=== PATIENT | female | born 1960 | race Caucasian/White ===

== ENCOUNTER 2020-09-28 15:47 | Observation (INO) | payer BC ==
[2020-09-28] MEDS ORDERED: ASPIRIN 325 MG TAB PO STA (17:00)
[2020-09-28] MEDS ORDERED: SODIUM CHLORIDE 0.9% 500 ML 500 ML IV ONE ×2 (17:00→17:48)
--- NOTE | 2020-09-28 17:00 | ED ---
General Adult HPI - General Chief complaint: Syncope Stated complaint: Abn EKG, heart issues Time Seen by Provider: 09/28/20 16:45 Source: patient, RN notes reviewed, old records reviewed Mode of arrival: ambulatory Limitations: no limitations - History of Present Illness Initial comments: 60-year-old female presenting for evaluation of syncopal episode and abnormal EKG. Patient was seen by her primary care physician today and found to have nonsustained ventricular tachycardia. 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 She reports a minor injury to her left arm. No significant head trauma. Denies chest pain but states she's had some palpitations. She does drink coffee in the morning and green tea throughout the day. No previous history of arrhythmia. No previous history of CAD. Patient has history of hypertension but is otherwise healthy. No recent nausea vomiting. No abdominal pain. No chest pain no fever. No cough. - Related Data Home Medications Medication Instructions Recorded Confirmed Albuterol Nebulized [Ventolin 2.5 mg INHALATION RT-Q4H PRN 09/28/20 09/28/20 Nebulized] Albuterol Sulfate [Ventolin HFA] 1 - 2 puff INHALATION RT-Q6H PRN 09/28/20 09/28/20 Losartan Potassium 50 mg PO DAILY 09/28/20 09/28/20 Meloxicam [Mobic] 15 mg PO DAILY PRN 09/28/20 09/28/20 Rosuvastatin [Crestor] 10 mg PO DAILY 09/28/20 09/28/20 Allergies Allergy/AdvReac Type Severity Reaction Status Date / Time No Known Allergies Allergy Verified 09/28/20 17:11 Review of Systems ROS Statement: Those systems with pertinent positive or pertinent negative responses have been documented in the HPI. ROS Other: All systems not noted in ROS Statement are negative. Past Medical History Past Medical History: Hyperlipidemia, Hypertension History of Any Multi-Drug Resistant Organisms: None Reported Past Surgical History: Cholecystectomy, Hysterectomy Additional Past Surgical History / Comment(s): one kidney Past Psychological History: No Psychological Hx Reported Smoking Status: Current every day smoker Past Alcohol Use History: None Reported Past Drug Use History: None Reported General Exam Limitations: no limitations General appearance: alert, in no apparent distress Head exam: Present: atraumatic, normocephalic Eye exam: Present: normal appearance, PERRL ENT exam: Present: mucous membranes dry Neck exam: Present: normal inspection. Absent: tenderness, meningismus Respiratory exam: Present: normal lung sounds bilaterally. Absent: respiratory distress, wheezes Cardiovascular Exam: Present: regular rate, irregular rhythm GI/Abdominal exam: Present: soft. Absent: distended, tenderness, guarding, rebound Extremities exam: Present: normal inspection, normal capillary refill Neurological exam: Present: alert, oriented X3, CN II-XII intact. Absent: motor sensory deficit Psychiatric exam: Present: normal affect, normal mood Skin exam: Present: warm, dry, intact. Absent: cyanosis, diaphoretic Course Vital Signs 09/28/20 09/28/20 09/28/20 16:28 17:18 18:55 Temperature 98.1 F Pulse Rate 60 87 85 Respiratory 18 16 16 Rate Blood Pressure 135/81 121/76 137/97 O2 Sat by Pulse 99 99 97 Oximetry - Reevaluation(s) Reevaluation #1: 09/28/20 18:50 Patient reevaluated, resting comfortably, sinus rhythm on the monitor with no PVCs or runs of ventricular tachycardia. EKG Findings - EKG Comments: EKG Findings:: EKG: Sinus rhythm with nonsustained ventricular tachycardia rate of 116, CA interval 154. QRS duration 70, QTC 461, the perfusing rhythm is much slower roughly 60. There is no ST segment elevation. Repeat EKG is normal sinus rhythm, low voltage, rate of 84, CA interval 144, QRS duration 86, QTC [address] segment elevation. Medical Decision Making - Medical Decision Making 60-year-old female with episode of syncope which occurred yesterday and nonsustained ventricular tachycardia. Blood pressure is stable. No active chest pain. No history of CAD. Patient has x-ray which is clear, no CHF, no focal pneumonia. Patient has a normal CBC, CMP showing a potassium 3.9, magnesium 1.7 both are replaced. Troponin is negative. I discussed case both with Dr. Rodríguez who will admit and with Dr. Villegas covering for cardiology. Echo has been ordered. - Lab Data Result diagrams: 09/28/20 16:55 09/28/20 17:56 Lab Results 09/28/20 09/28/20 09/28/20 Range/Units 16:55 16:55 16:55 WBC 10.8 H (3.8-10.6) k/uL RBC 5.38 (3.80-5.40) m/uL Hgb 16.2 H (11.4-16.0) gm/dL Hct 46.7 H (34.0-46.0) % MCV 86.8 (80.0-100.0) fL MCH 30.0 (25.0-35.0) pg MCHC 34.6 (31.0-37.0) g/dL RDW 14.0 (11.5-15.5) % Plt Count 237 (150-450) k/uL MPV 8.6 Neutrophils % 71 % Lymphocytes % 21 % Monocytes % 5 % Eosinophils % 1 % Basophils % 1 % Neutrophils # 7.7 (1.3-7.7) k/uL Lymphocytes # 2.2 (1.0-4.8) k/uL Monocytes # 0.5 (0-1.0) k/uL Eosinophils # 0.1 (0-0.7) k/uL Basophils # 0.1 (0-0.2) k/uL PT 10.4 (9.0-12.0) sec INR 1.0 (<1.2) APTT 23.5 (22.0-30.0) sec Sodium (137-145) mmol/L Potassium (3.5-5.1) mmol/L Chloride (98-107) mmol/L Carbon Dioxide (22-30) mmol/L Anion Gap mmol/L BUN (7-17) mg/dL Creatinine (0.52-1.04) mg/dL Est GFR (CKD-EPI)AfAm (>60 ml/min/1.73 sqM) Est GFR (CKD-EPI)NonAf (>60 ml/min/1.73 sqM) Glucose (74-99) mg/dL Calcium (8.4-10.2) mg/dL Magnesium (1.6-2.3) mg/dL Total Bilirubin (0.2-1.3) mg/dL AST (14-36) U/L ALT (4-34) U/L Alkaline Phosphatase (38-126) U/L Troponin I <0.012 (0.000-0.034) ng/mL Total Protein (6.3-8.2) g/dL Albumin (3.5-5.0) g/dL 09/28/20 Range/Units 17:56 WBC (3.8-10.6) k/uL RBC (3.80-5.40) m/uL Hgb (11.4-16.0) gm/dL Hct (34.0-46.0) % MCV (80.0-100.0) fL MCH (25.0-35.0) pg MCHC (31.0-37.0) g/dL RDW (11.5-15.5) % Plt Count (150-450) k/uL MPV Neutrophils % % Lymphocytes % % Monocytes % % Eosinophils % % Basophils % % Neutrophils # (1.3-7.7) k/uL Lymphocytes # (1.0-4.8) k/uL Monocytes # (0-1.0) k/uL Eosinophils # (0-0.7) k/uL Basophils # (0-0.2) k/uL PT (9.0-12.0) sec INR (<1.2) APTT (22.0-30.0) sec Sodium 136 L (137-145) mmol/L Potassium 3.9 (3.5-5.1) mmol/L Chloride 104 (98-107) mmol/L Carbon Dioxide 23 (22-30) mmol/L Anion Gap 9 mmol/L BUN 21 H (7-17) mg/dL Creatinine 0.81 (0.52-1.04) mg/dL Est GFR (CKD-EPI)AfAm >90 (>60 ml/min/1.73 sqM) Est GFR (CKD-EPI)NonAf 79 (>60 ml/min/1.73 sqM) Glucose 115 H (74-99) mg/dL Calcium 9.4 (8.4-10.2) mg/dL Magnesium 1.7 (1.6-2.3) mg/dL Total Bilirubin 0.6 (0.2-1.3) mg/dL AST 20 (14-36) U/L ALT 12 (4-34) U/L Alkaline Phosphatase 116 (38-126) U/L Troponin I (0.000-0.034) ng/mL Total Protein 7.0 (6.3-8.2) g/dL Albumin 4.4 (3.5-5.0) g/dL Critical Care Time Critical Care Time: Yes Total Critical Care Time: 35 Disposition Clinical Impression: Syncope, Nonsustained ventricular tachycardia Disposition: ADMITTED IP TO THIS [facility] Condition: Stable Is patient prescribed a controlled substance at d/c from ED?: No Referrals: Clem Langford DO [Primary Care Provider] - 1-2 days Decision to Admit Reason: Admit from EC Decision Date: 09/28/20 Decision Time: 18:52
[2020-09-28 17:12] LABS: Basophils # (A) 0.1 k/uL (0-0.2); Basophils % (A) 1 %; Eosinophils # (A) 0.1 k/uL (0-0.7); Eosinophils % (A) 1 %; HCT 46.7 % (34.0-46.0); HGB 16.2 gm/dL (11.4-16.0); Lymphocytes # (A) 2.2 k/uL (1.0-4.8); Lymphocytes % (A) 21 %; MCHC 34.6 g/dL (31.0-37.0); MCV 86.8 fL (80.0-100.0); Mean Platelet Volume 8.6; Monocytes # (A) 0.5 k/uL (0-1.0); Monocytes % (A) 5 %; Neutrophils # (A) 7.7 k/uL (1.3-7.7); Neutrophils % (A) 71 %; Platelet Count 237 k/uL (150-450); RBC 5.38 m/uL (3.80-5.40); WBC 10.8 k/uL (3.8-10.6)
[2020-09-28 17:37] LABS: Partial Thromboplastin Time 23.5 sec (22.0-30.0); Prothrombin Time 10.4 sec (9.0-12.0)
--- NOTE | 2020-09-28 17:45 | XR ---
EXAMINATION TYPE: XR chest 1V portable DATE OF EXAM: 09/28/2020 COMPARISON: NONE HISTORY: Syncope TECHNIQUE: Single view FINDINGS: Heart and mediastinum are normal. Lungs are clear. Diaphragm is normal. Bony thorax appears normal. There are chest leads. IMPRESSION: Normal chest.
[2020-09-28 18:24] LABS: ALT 12 U/L (4-34); AST 20 U/L (14-36); African American GFR (CKD) >90 (>60 ml/min/1.73 sqM); Albumin 4.4 g/dL (3.5-5.0); Alkaline Phosphatase 116 U/L (38-126); Anion Gap 9 mmol/L; Blood Urea Nitrogen 21 mg/dL (7-17); Calcium 9.4 mg/dL (8.4-10.2); Carbon Dioxide 23 mmol/L (22-30); Chloride 104 mmol/L (98-107); Glucose 115 mg/dL (74-99); Magnesium 1.7 mg/dL (1.6-2.3); Non-African American GFR(CKD) 79 (>60 ml/min/1.73 sqM); Potassium 3.9 mmol/L (3.5-5.1); Sodium 136 mmol/L (137-145); Total Bilirubin 0.6 mg/dL (0.2-1.3)
[2020-09-28] MEDS ORDERED: MAGNESIUM SULFATE-D5W PMX 1 GM in DEXTROSE/WATER 1 100ML.BAG IVPB ONE (18:25)
[2020-09-28] MEDS ORDERED: POTASSIUM CHLORIDE ER 20 MEQ TAB.ER PO STA (18:33)
[2020-09-28] MEDS ORDERED: NALOXONE 0.4 MG/ML 1 ML VIAL IV PRN (18:48)
[2020-09-28] MEDS ORDERED: ACETAMINOPHEN TAB 325 MG TAB PO PRN (18:48)
[2020-09-28] MEDS ORDERED: ALBUTEROL HFA INHALER INHALATION PRN (19:19)
[2020-09-28] MEDS ORDERED: ALPRAZolam 0.25 MG TAB PO PRN (19:20)
[2020-09-28] MEDS ORDERED: TEMAZEPAM 15 MG CAP PO PRN (19:20)
[2020-09-28] MEDS: SODIUM CHLORIDE 0.9% 1,000 ML IV SCH (21:40)
--- NOTE | 2020-09-28 22:39 | HP ---
HISTORY AND PHYSICAL DATE OF SERVICE: 09/28/2020 CHIEF COMPLAINT: Syncope. HISTORY OF PRESENT ILLNESS: This 60-year-old woman with a past medical history of hypertension, hyperlipidemia, cholecystectomy, history of hysterectomy, being followed by Dr. Clem Langford in the outpatient setting, complaining of cough and a syncopal episode. The patient was noted to have abnormal EKG and the patient was found to have nonsustained tachycardia. The patient had syncope yesterday also with some minimal injury to the left arm and currently the patient noted to recurrent episodes of nonsustained ventricular tachycardia. The patient admitted for further evaluation and treatment. The basic labs showed elevated WBC 10.8, sodium 138. Troponins are negative at this time. The EKG which I reviewed showed basically the rhythm is probably incomplete right bundle branch block with low-voltage complexes and chest x-ray did not show any acute abnormality. The patient being admitted for further evaluation and treatment. There is no history of fever, rigors or chills. No headache, seizures at this time. The patient apparently drinks several cups of green tea every day. PAST MEDICAL HISTORY: History of hypertension, hyperlipidemia, cholecystectomy and hysterectomy. MEDICATIONS: Medications prior to admission include home medications are: Crestor, Mobic, losartan, Ventolin. ALLERGIES: None. FAMILY HISTORY: No history of heart disease or strokes in the family. SOCIAL HISTORY: History of regular smoking. REVIEW OF SYSTEMS: ENT: No diminished hearing. No diminished vision. CARDIOVASCULAR: As mentioned earlier. GI no nausea or vomiting. : No dysuria. NERVOUS SYSTEM: No numbness or weakness. ALLERGY/IMMUNOLOGY: No asthma or hayfever. MUSCULOSKELETAL as mentioned earlier. HEMATOLOGY/ONCOLOGY: No history of anemia. ENDOCRINE: No history of diabetes or hypothyroidism. CONSTITUTIONAL: As mentioned earlier. DERMATOLOGY: Negative. RHEUMATOLOGY: Negative. PSYCHIATRY: As mentioned earlier. PHYSICAL EXAMINATION: The patient is alert and oriented times three. Pulse 85. Blood pressure 137/97, respirations 16, temperature 98.1, pulse ox 97% on 2 L. HEENT is conjunctivae normal. Oral mucosa moist. Neck is no jugular venous distention. No carotid bruit. No lymph node enlargement. CARDIOVASCULAR system: S1, S2. No S3, no S4. RESPIRATORY: Breath sounds diminished in the bases. No rhonchi. No crackles. ABDOMEN: Soft. Nontender. No mass palpable. LEGS: No edema. No swelling. NERVOUS SYSTEM: Higher functions as mentioned earlier. Moves all 4 limbs. No focal motor or sensory deficits. LYMPHATICS: No lymph nodes palpable in the neck, axillae or groin. SKIN: No ulcer, rash or bleeding. JOINTS: No active deforming arthropathy. LABS: WBC 10.3, hemoglobin 16.2, sodium 138. ASSESSMENT: 1. Syncope secondary to cardiac arrhythmia. 2. Recurrent episodes of nonsustained ventricular tachycardia. 3. Anemia. 4. Mild polycythemia. 5. Hyponatremia. 6. QTc 446 milliseconds. 7. History of hypertension. 8. Hyperlipidemia. 9. History of cholecystectomy. 10.History of hysterectomy. 11.History of continued ongoing nicotine dependence. 12.FULL CODE. RECOMMENDATIONS AND DISCUSSION: In this 60-year-old woman who presented with multiple complex medical issues, we will monitor the patient closely. Continue the current medications, symptomatic treatment. We will treat the patient with magnesium and Cardiology consultation and continue to monitor. Rule out myocardial infarction. Two-D echo with Doppler. Guarded prognosis. The patient requires full cardiac workup and discussed with the patient who understands and agrees. A copy of dictation being forwarded Dr. Langford who is the primary physician. The patient will need a full workup including coronary artery studies and as well as EP studies. MMODL / IJN: [id number] /
[2020-09-29 06:34] LABS: Basophils # (A) 0.1 k/uL (0-0.2); Basophils % (A) 1 %; Eosinophils # (A) 0.2 k/uL (0-0.7); Eosinophils % (A) 2 %; HCT 43.2 % (34.0-46.0); HGB 14.5 gm/dL (11.4-16.0); Lymphocytes # (A) 1.8 k/uL (1.0-4.8); Lymphocytes % (A) 23 %; MCH 29.3 pg (25.0-35.0); MCHC 33.4 g/dL (31.0-37.0); MCV 87.5 fL (80.0-100.0); Mean Platelet Volume 8.3; Monocytes # (A) 0.6 k/uL (0-1.0); Monocytes % (A) 8 %; Neutrophils # (A) 4.8 k/uL (1.3-7.7); Neutrophils % (A) 64 %; Platelet Count 192 k/uL (150-450); RBC 4.94 m/uL (3.80-5.40); RDW 13.6 % (11.5-15.5); WBC 7.5 k/uL (3.8-10.6)
[2020-09-29 06:48] LABS: African American GFR (CKD) >90 (>60 ml/min/1.73 sqM); Anion Gap 5 mmol/L; Blood Urea Nitrogen 19 mg/dL (7-17); Calcium 9.4 mg/dL (8.4-10.2); Carbon Dioxide 27 mmol/L (22-30); Chloride 106 mmol/L (98-107); Glucose 112 mg/dL (74-99); Non-African American GFR(CKD) 86 (>60 ml/min/1.73 sqM); Potassium 4.1 mmol/L (3.5-5.1); Sodium 138 mmol/L (137-145)
[2020-09-29] MEDS: PANTOPRAZOLE 40 MG TABLET PO SCH (08:26)
[2020-09-29] MEDS: ATORVASTATIN 20 MG TAB PO SCH (08:26)
[2020-09-29] MEDS: LOSARTAN 50 MG TAB PO SCH (08:26)
--- NOTE | 2020-09-29 09:31 | P.CRDCN ---
History of Present Illness Consult date: 09/29/20 Requesting physician: Issac Rodríguez Reason for Consult (text): NSVT Chief complaint: syncope History of present illness: This is a pleasant 60-year-old female patient with a past medical history of hypertension, hyperlipidemia, COPD, current every day smoker. Her mother had a history of angina starting in her 50s however patient is unsure whether she had any coronary artery disease. She was advised by her PCP to come to the emergency department. On September 27 the patient was sitting in speaking with a client. 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 She was seated for a few minutes. She stood to help her client and felt very warm and had a brief syncopal episode. She had no loss of bowel or bladder. She said she only lost consciousness for seconds. Following the episode she just did not feel right. She subsequently called and scheduled an appointment to see her PCP who did an examination and noted her heart rate to be erratic. Apparently he did an EKG in the office and noted the patient to be having runs of nonsustained ventricular tachycardia. Patient denies having palpitations but said that her chest just did not feel right. Upon arrival patient was noted to have 4-5 beat runs of nonsustained ventricular tachycardia. Laboratory values showed po tassium 3.9 and a magnesium of 1.7. She did receive 1 g of magnesium IV and subsequent magnesium was 2.0. She received one dose of oral potassium 20 mEq. Chest x-ray showed normal chest. Troponin was negative 1. Upon examination patient resting comfortably in bed. She denies any complaints of chest discomfort. She is overall feeling quite a bit better. He did undergo echocardiogram this morning with results pending. She has no current complaints of dizziness, lightheadedness, palpitations, chest discomfort, or shortness of breath. She does have a chronic cough secondary to COPD and smoking. This is unchanged. She denies any edema, orthopnea or PND. Past Medical History Past Medical History: Hyperlipidemia, Hypertension Additional Past Medical History / Comment(s): Left kidney removed when patient was 9yrs old. History of Any Multi-Drug Resistant Organisms: None Reported Past Surgical History: Cholecystectomy, Hysterectomy Additional Past Surgical History / Comment(s): one kidney Past Psychological History: No Psychological Hx Reported Smoking Status: Current every day smoker Past Alcohol Use History: None Reported Past Drug Use History: None Reported Medications and Allergies Home Medications Medication Instructions Recorded Confirmed Type Albuterol Nebulized [Ventolin 2.5 mg INHALATION RT-Q4H PRN 09/28/20 09/28/20 History Nebulized] Albuterol Sulfate [Ventolin HFA] 1 - 2 puff INHALATION RT-Q6H PRN 09/28/20 09/28/20 History Losartan Potassium 50 mg PO DAILY 09/28/20 09/28/20 History Meloxicam [Mobic] 15 mg PO DAILY PRN 09/28/20 09/28/20 History Rosuvastatin [Crestor] 10 mg PO DAILY 09/28/20 09/28/20 History Allergies Allergy/AdvReac Type Severity Reaction Status Date / Time No Known Allergies Allergy Verified 09/28/20 17:11 Physical Exam Vitals: Vital Signs Temp Pulse Pulse Resp BP BP Pulse Ox 09/29/20 07:00 98.7 F 75 16 134/78 94 L 09/29/20 01:35 20 09/29/20 01:30 98.0 F 87 16 124/70 96 09/28/20 20:49 97.8 F 83 20 145/75 97 09/28/20 19:45 80 18 128/59 98 09/28/20 18:55 85 16 137/97 97 09/28/20 17:18 87 16 121/76 99 09/28/20 16:28 98.1 F 60 18 135/81 99 Intake and Output 09/28/20 09/29/20 09/29/20 22:59 06:59 14:59 Other: # Voids 1 2 Weight 82.554 kg PHYSICAL EXAMINATION: This is a 60-year-old female in no apparent distress at the time of my examination. VITAL SIGNS: Blood pressure 134/78, heart rate 75, respirations 16, temp 98.7F. Patient is 94 % on 2 L via nasal cannula. HEENT: Head is atraumatic, normocephalic. Pupils are equal, round. Sclerae anicteric. Conjunctivae are clear. Mucous membranes of the mouth are moist. Neck is supple. There is no elevated jugular venous pressure. No carotid bruit is heard. CHEST EXAMINATION: Lungs reveal wheezing throughout. Respirations even and nonlabored. HEART EXAMINATION: Heart regular, positive S1 and S2. No S3. No S4. No clicks, rubs or murmurs. ABDOMEN: Soft, nontender. Bowel sounds are heard. No organomegaly noted. EXTREMITIES: 2+ peripheral pulses with no evidence of peripheral edema and no calf tenderness noted. NEUROLOGIC EXAMINATION: Patient is awake, alert and oriented x3. Results 09/29/20 06:06 09/29/20 06:06 Cardiac Enzymes 09/28/20 09/28/20 Range/Units 16:55 17:56 AST 20 (14-36) U/L Troponin I <0.012 (0.000-0.034) ng/mL Coagulation 09/28/20 Range/Units 16:55 PT 10.4 (9.0-12.0) sec APTT 23.5 (22.0-30.0) sec CBC 09/28/20 09/29/20 Range/Units 16:55 06:06 WBC 10.8 H 7.5 (3.8-10.6) k/uL RBC 5.38 4.94 (3.80-5.40) m/uL Hgb 16.2 H 14.5 (11.4-16.0) gm/dL Hct 46.7 H 43.2 (34.0-46.0) % Plt Count 237 192 (150-450) k/uL Comprehensive Metabolic Panel 09/28/20 09/29/20 Range/Units 17:56 06:06 Sodium 136 L 138 (137-145) mmol/L Potassium 3.9 4.1 (3.5-5.1) mmol/L Chloride 104 106 (98-107) mmol/L Carbon Dioxide 23 27 (22-30) mmol/L BUN 21 H 19 H (7-17) mg/dL Creatinine 0.81 0.75 (0.52-1.04) mg/dL Glucose 115 H 112 H (74-99) mg/dL Calcium 9.4 9.4 (8.4-10.2) mg/dL AST 20 (14-36) U/L ALT 12 (4-34) U/L Alkaline Phosphatase 116 (38-126) U/L Total Protein 7.0 (6.3-8.2) g/dL Albumin 4.4 (3.5-5.0) g/dL Current Medications Generic Name Dose Route Start Last Admin Trade Name Freq PRN Reason Stop Dose Admin Acetaminophen 650 mg 09/28/20 18:48 Acetaminophen Tab 325 Mg Tab PO Q6HR PRN Mild Pain or Fever > 100.5 Albuterol Sulfate 1 - 2 puff 09/28/20 19:19 Albuterol Hfa Inhaler INHALATION RT-Q6H PRN Shortness Of Breath Alprazolam 0.25 mg 09/28/20 19:20 Alprazolam 0.25 Mg Tab PO TID PRN Anxiety Atorvastatin Calcium 20 mg 09/29/20 09:00 09/29/20 08:26 Atorvastatin 20 Mg Tab PO 20 mg DAILY EARL Administration Sodium Chloride 1,000 mls @ 20 mls/hr 09/28/20 19:00 09/28/20 21:40 Saline 0.9% IV 20 mls/hr .Q24H EARL Administration Losartan Potassium 50 mg 09/29/20 09:00 09/29/20 08:26 Losartan 50 Mg Tab PO 50 mg DAILY EARL Administration Naloxone HCl 0.2 mg 09/28/20 18:48 Naloxone 0.4 Mg/Ml 1 Ml Vial IV Q2M PRN Opioid Reversal Pantoprazole Sodium 40 mg 09/29/20 07:30 09/29/20 08:26 Pantoprazole 40 Mg Tablet PO 40 mg [id number] EARL Administration Temazepam 15 mg 09/28/20 19:20 Temazepam 15 Mg Cap PO HS PRN Insomnia Intake and Output 09/28/20 09/29/20 09/29/20 22:59 06:59 14:59 Other: # Voids 1 2 Weight 82.554 kg 09/29/20 06:06 09/29/20 06:06 Assessment and Plan Assessment: #1 nonsustained ventricular tachycardia #2 episode of brief syncope, could be secondary to above #3 hypertension #4 hyperlipidemia #5 nicotine dependence #6 probable family history of premature CAD Plan: From telephone cleaner perspective we will review 2-D echo with Doppler to assess cardiac structure and function. We will add beta yin. We are recommending the patient undergo cardiac catheterization to rule out underlying CAD. The risks, benefits and alternative therapies for the above-mentioned procedure and for both sedation/analgesia as well as necessary blood product administration, if indicated, have been discussed with the patient. The patient has indicated understanding and acceptance of the risks and procedures discussed. Questions have been answered appropriately and HE/SHE is agreeable to move forward with the above stated procedure. To be scheduled this morning with Dr. Lynch. The above dictated assessment and findings were discussed with signing physician. The impression and plan of care have been directed as dictated. Catalina Cohen, Nurse Practitioner, acting as scribe for signing physician.
[2020-09-29] MEDS ORDERED: ATORVASTATIN 80 MG TAB PO STA (10:00)
[2020-09-29] MEDS ORDERED: SODIUM CHLORIDE 0.9% 1,000 ML in EMPTY BAG 1 BAG IV ONE (10:00)
[2020-09-29] MEDS ORDERED: ALPRAZolam 0.5 MG TAB PO PRN (10:00)
[2020-09-29] MEDS ORDERED: NITROGLYCERIN SL TABS 0.4 MG TAB SUBLINGUAL PRN (10:00)
[2020-09-29] MEDS ORDERED: ASPIRIN 325 MG TAB PO STA (10:00)
--- NOTE | 2020-09-29 10:00 | ECHOF ---
Referral Reason:syncope MEASUREMENTS -------- HEIGHT: 170.2 cm WEIGHT: 82.6 kg BP: RVIDd: 2.6 cm (< 3.3) IVSd: 1.0 cm (0.6 - 1.1) LVIDd: 2.9 cm (3.9 - 5.3) LVPWd: 1.1 cm (0.6 - 1.1) IVSs: 1.7 cm LVIDs: 1.2 cm LVPWs: 1.5 cm LAESV Index (A-L): 14.20 ml/m Ao Diam: 3.0 cm (2.0 - 3.7) AV Cusp: 2.0 cm (1.5 - 2.6) LA Diam: 2.0 cm (2.7 - 3.8) MV EXCURSION: 18.048 mm (> 18.000) MV EF SLOPE: 107 mm/s (70 - 150) EPSS: 1.5 cm MV E Dominikc: 0.82 m/s MV DecT: 263 ms MV A Dominick: 0.78 m/s MV E/A Ratio: 1.06 RAP: 5.00 mmHg RVSP: 10.33 mmHg FINDINGS -------- This was a technically good study. The left ventricular size is normal. Left ventricular wall thickness is normal. Overall left vent ricular systolic function is normal with, an EF between 55 - 60 %. The diastolic filling pattern is normal for the age of the patient 12.79. The right ventricle is normal in size. The left atrial size is normal. Normal LA size by volume 22+/-6 ml/m2. The right atrial size is normal. Interatrial and interventricular septum intact. The aortic valve is trileaflet and appears structurally normal. The mitral valve is normal. Mild mitral regurgitation is present. The tricuspid valve appears structurally normal. Trace tricuspid regurgitation present. Right stacy tricular systolic pressure is normal at < 35 mmHg. There is no pulmonic regurgitation present. The aortic root size is normal. Normal inferior vena cava with normal inspiratory collapse consistent with estimated right atrial pre ssure of 5 mmHg. Echo free space indicative of a pericardial fat pad. CONCLUSIONS -------- 1. The left ventricular size is normal. 2. Left ventricular wall thickness is normal. 3. Overall left ventricular systolic function is normal with, an EF between 55 - 60 %. 4. The diastolic filling pattern is normal for the age of the patient 12.79 5. Mild mitral regurgitation is present. 6. Trace tricuspid regurgitation present. 7. Echo free space indicative of a pericardial fat pad. STAFF EDUCATOR: Desiree Sky RDCS
[2020-09-29] MEDS: METOPROLOL TARTRATE 25 MG TAB PO SCH ×2 (10:12→22:04)
[2020-09-29] MEDS: ALBUTEROL HFA INHALER INHALATION PRN (11:04)
[2020-09-29] MEDS ORDERED: LIDOCAINE 1% INJ 10MG/ML (20 ML MDV) ONE (11:37)
[2020-09-29] MEDS ORDERED: IV FLUID CONTINUATION 1,000 ML IV ONE (11:45)
[2020-09-29] MEDS ORDERED: fentaNYL (PF) 50 MCG/ML 2 ML AMP ONE (12:01)
[2020-09-29] MEDS ORDERED: LIDOCAINE 1% INJ 10MG/ML (20 ML MDV) SQ ONE (12:09)
[2020-09-29] MEDS: fentaNYL (PF) 50 MCG/ML 2 ML AMP IV ONE ×2 (12:09→12:14)
[2020-09-29] MEDS ORDERED: MIDAZOLAM 2 MG/2 ML VIAL IV ONE (12:09)
[2020-09-29] MEDS ORDERED: IOPAMIDOL-370 125ML BTL INJ ONE (12:21)
--- NOTE | 2020-09-29 13:22 | CC ---
CARDIAC CATHETERIZATION REPORT INDICATION: Syncope with nonsustained ventricular tachycardia. HISTORY OF PRESENT ILLNESS: This is a 60-year-old lady who presented to hospital having had a syncopal episode with runs of sustained VT documented on rhythm strips and EKG. She was advised to undergo cardiac catheterization to rule out ischemic etiology for her ventricular tachyarrhythmia. Patient remained of risks, benefits and alternatives and understood and accepted. PROCEDURE NOTE: After obtaining informed consent, left heart catheterization and coronary angiogram were performed via the right femoral artery using standard Jeanette catheters. Patient tolerated the procedure well without any obvious immediate complications. A femoral angiogram was performed and Angio-Seal will be deployed for hemostasis. Patient received moderate conscious sedation including 2 mg of Versed and 25 mcg of fentanyl and moderate sedation was 20 minutes. FINDINGS: HEMODYNAMICS: Left ventricular end-diastolic pressure is 8 to 10 mm. There is no significant gradient across the aortic valve. LEFT VENTRICULOGRAM: Not performed. ANGIOGRAPHIC DATA: Left main coronary artery is a normal-sized vessel and is free of stenosis. Divides into left anterior descending coronary artery and circumflex coronary artery. LAD and its branches, circumflex coronary artery and its branches are free of significant stenosis. Right coronary artery is a large dominant vessel and is free of significant disease. CONCLUSIONS: 1. Normal coronary arteries. 2. Normal left ventricular end-diastolic pressure. PLAN: The patient's syncope and nonsustained VT are unrelated to ischemic heart disease. I will discharge her home on magnesium and beta yin and do further workup as an outpatient as needed. MMODL / IJN: [id number] /
--- NOTE | 2020-09-29 19:11 | PN ---
PROGRESS NOTE DATE OF SERVICE: 09/29/2020 This 60-year-old woman was admitted with syncope. Also had nonsustained ventricular tachycardia. The patient underwent cardiac catheterization by Cardiology which showed normal coronary arteries and normal left ventricular end-diastolic pressure also. The 2D echo with Doppler was noted which showed ejection fraction 55- 60%. No chest pain. No palpitations. No fever. PHYSICAL EXAMINATION: Alert and oriented x3. Pulse 71, blood pressure 106/60, respiration 14, temperature normal, pulse ox 97% on 2 L. HEENT: Conjunctivae normal. Oral mucosa moist. NECK: No jugular venous distention. No lymph node enlargement. CARDIOVASCULAR: S1, S2, muffled. No S3, no S4, RESPIRATORY: Diminished breath sounds at the bases. No rhonchi, no crackles. ABDOMEN: Soft, nontender. NERVOUS SYSTEM: No focal motor or sensory deficits. LABS: CBC within normal limits. Glucose 112. COVID-19 is negative. ASSESSMENT: 1. Syncope secondary to cardiac arrhythmia. 2. Recurrent episodes of nonsustained ventricular tachycardia. 3. Cardiac catheterization with normal coronary arteries. 4. Anemia. 5. Mild polycythemia. 6. Hyponatremia. 7. Prolonged QT interval. 8. History of hypertension. 9. History of hyperlipidemia. 10.History of cholecystectomy. 11.History hysterectomy. 12.History of continue ongoing nicotine dependence. 13.FULL CODE. RECOMMENDATIONS AND DISCUSSION: Recommend to continue current management and symptomatic treatment. Otherwise, Cardiology will follow the patient. Patient is on beta blockers. Guarded prognosis. Further recommendations to follow. MMODL / IJN: [id number] /
[2020-09-29 20:12] VITALS: TEMP 97.6
[2020-09-29 20:38] LABS: Appearance,Urine Clear (Clear); Bacteria,Urine Rare /hpf; Bilirubin,Urine Negative (Negative); Blood,Urine Trace (Negative); Color,Urine Yellow; Glucose,Urine (UA) Negative (Negative); Ketones,Urine Negative (Negative); Leukocyte Esterase,Urine Small (Negative); Mucus,Urine Rare /hpf; Nitrite,Urine Positive (Negative); PH, Urine 5.5 (5.0-8.0); Protein,Urine Trace (Negative); RBC,Urine 3 /hpf (0-5); Squamous Epithelial Cell,Urine 2 /hpf (0-4); Urobilinogen,Urine <2.0 mg/dL (<2.0); WBC,Urine 30 /hpf (0-5)
[2020-09-29 20:42] LABS: Amphetamine Screen,Urine Not Detected (NotDetected); Barbiturate Screen,Urine Not Detected (NotDetected); Benzodiazepines Screen,Urine Not Detected (NotDetected); Cocaine Screen,Urine Not Detected (NotDetected); Methadone Screen, Urine Not Detected (NotDetected); Opiate Screen,Urine Not Detected (NotDetected); Oxycodone Screen, Urine Not Detected (NotDetected); Phencyclidine Screen,Urine Not Detected (NotDetected); Tricyclic Antidepressant,Urine Not Detected (NotDetected); Urn Cannabinoid Scrn Not Detected (NotDetected)
[2020-09-30] MEDS: SODIUM CHLORIDE 0.9% 1,000 ML IV SCH (04:26)
[2020-09-30] MEDS ORDERED: HEPARIN SODIUM,PORCINE 2,500 UNIT in SODIUM CHLORIDE 0.9% 250 ML IRRIGATION PRN (07:00)
[2020-09-30] MEDS ORDERED: HEPARIN SODIUM,PORCINE 10,000 UNIT in SODIUM CHLORIDE 0.9% 1,000 ML IRRIGATION PRN (07:00)
[2020-09-30 07:23] VITALS: BP 120/74; PULSE 69; RESP 18
[2020-09-30] MEDS: LOSARTAN 50 MG TAB PO SCH (07:23)
[2020-09-30] MEDS: PANTOPRAZOLE 40 MG TABLET PO SCH (07:24)
[2020-09-30] MEDS: ATORVASTATIN 20 MG TAB PO SCH (07:24)
[2020-09-30] MEDS: METOPROLOL TARTRATE 25 MG TAB PO SCH (07:24)
[2020-09-30] MEDS: ALBUTEROL HFA INHALER INHALATION PRN (08:35)
--- NOTE | 2020-09-30 09:03 | P.PN ---
Subjective Progress Note Date: 09/30/20 This is a pleasant 60-year-old female patient with a past medical history of hypertension, hyperlipidemia, COPD, current every day smoker. Her mother had a history of angina starting in her 50s however patient is unsure whether she had any coronary artery disease. She was advised by her PCP to come to the emergency department. On September 27 the patient was sitting in speaking with a client. 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 She was seated for a few minutes. She stood to help her client and felt very warm and had a brief syncopal episode. She had no loss of bowel or bladder. She said she only lost consciousness for seconds. Following the episode she just did not feel right. She subsequently called and scheduled an appointment to see her PCP who did an examination and noted her heart rate to be erratic. Apparently he did an EKG in the office and noted the patient to be having runs of nonsustained ventricular tachycardia. Patient denies having palpitations but said that her chest just did not feel right. Upon arrival patient was noted to have 4-5 beat runs of nonsustained ventricular tachycardia. Laboratory values showed potassium 3.9 and a magnesium of 1.7. She did receive 1 g of magnesium IV and subsequent magnesium was 2.0. She received one dose of oral potassium 20 mEq. Chest x-ray showed normal chest. Troponin was negative 1. Upon examination patient resting comfortably in bed. She denies any complaints of chest discomfort. She is overall feeling quite a bit better. He did undergo echocardiogram this morning with results pending. She has no current complaints of dizziness, lightheadedness, palpitations, chest discomfort, or shortness of breath. She does have a chronic cough secondary to COPD and smoking. This is unchanged. She denies any edema, orthopnea or PND. 09/30/2020 Patient was seen and examined this morning resting comfortably in bed. She's had no further episodes of nonsustained ventricular tachycardia. Echocardiogram done yesterday showed normal LV systolic function. She did undergo cardiac catheterization which showed normal coronaries. Has been initiated on metoprolol tartrate 25 mg by mouth twice a day. Urine did show evidence of urinary tract infection. Vital signs of in stable and she's been afebrile. Overall she's feeling quite a bit better. She's had no complaints of chest discomfort. She's had no palpitations, dizziness, lightheadedness and no further syncope. Objective - Vital Signs Vital signs: Vital Signs Temp 97.6 F 09/30/20 07:00 Pulse 69 09/30/20 07:00 Resp 18 09/30/20 07:00 BP 120/74 09/30/20 07:00 Pulse Ox 95 09/30/20 07:00 Intake & Output 09/29/20 09/30/20 09/30/20 18:59 06:59 18:59 Intake Total 580 Balance 580 Intake: IV 100 Oral 480 Other: # Voids 2 11 - Exam PHYSICAL EXAMINATION: HEENT: Head is atraumatic, normocephalic. Pupils equal, round. Neck is supple. There is no elevated jugular venous pressure. HEART EXAMINATION: Heart sounds regular, S1 and S2 normal. No murmur or gallop heard. CHEST EXAMINATION: Lungs are clear to auscultation. No chest wall tenderness is noted on palpation or with deep breathing. ABDOMEN: Soft, nontender. Bowel sounds are heard. No organomegaly noted. EXTREMITIES: 2+ peripheral pulses with no evidence of peripheral edema and no calf tenderness noted. Right femoral puncture site soft without ecchymosis or hematoma with mild tenderness to palpation. NEUROLOGIC patient is awake, alert and oriented x3. . - Labs CBC & Chem 7: 09/29/20 06:06 09/29/20 06:06 Labs: Abnormal Lab Results - Last 24 Hours (Table) 09/29/20 Range/Units 19:37 Ur Specific [place] 1.050 H (1.001-1.035) Urine Protein Trace H (Negative) Urine Blood Trace H (Negative) Urine Nitrite Positive H (Negative) Ur Leukocyte Esterase Small H (Negative) Urine WBC 30 H (0-5) /hpf Urine WBC Clumps Rare H (None) /hpf Urine Bacteria Rare H (None) /hpf Urine Mucus Rare H (None) /hpf Assessment and Plan Assessment: #1 nonsustained ventricular tachycardia #2 episode of brief syncope, likely secondary to above #3 hypertension #4 hyperlipidemia #5 nicotine dependence #6 probable family history of premature CAD #7 hypomagnesemia Plan: From transport medic perspective we will continue beta yin. Patient will need to be sent home on magnesium supplement. Discussed with the patient the importance of smoking cessation. She will follow-up with Dr. Lynch in the office at which time decision will be made regarding the need for further outpatient cardiac workup. The above dictated assessment and findings were discussed with signing physician. The impression and plan of care have been directed as dictated. Catalina Cohen, Nurse Practitioner, acting as scribe for signing physician.
--- NOTE | 2020-10-01 10:39 | DS ---
DISCHARGE SUMMARY DATE OF SERVICE: 09/30/2020 FINAL DIAGNOSES: 1. Syncope possibly secondary to cardiac arrhythmia. 2. Recurrent episodes of nonsustained ventricular tachycardia. 3. Status post cardiac catheterization with normal coronary arteries. 4. Anemia. 5. Mild polycythemia. 6. Acute urinary tract infection present on admission. 7. Hyponatremia. 8. Prolonged QT interval history. 9. History of hypertension. 10.History of cholecystectomy. 11.History of hysterectomy. 12.History of continued ongoing nicotine dependence. 13.FULL CODE. DISCHARGE DISPOSITION: The patient will be discharged in stable condition with guarded prognosis. Cardiology cleared the patient for discharge. HISTORY OF PRESENT ILLNESS: This 60-year-old woman with a past medical history of multiple medical problems admitted with syncope, cardiac arrhythmia and multiple other medical issues as mentioned earlier. Cardiology performed a cardiac catheterization and showed normal coronary arteries. Patient was taking significant amount of green tea . Patient was recommended to stop the green tea, which might be causing the symptoms. Patient also had UTI. Short course of antibiotics was recommended. On exam, vital signs are stable. CARDIOVASCULAR: S1, S2 muffled. ABDOMEN: Soft. NERVOUS SYSTEM: No focal deficits. DISCHARGE ADVICE: 1. Diet is cardiac. 2. Activity limited until followup. 3. Follow up with Dr. Clem Langford in 1-2 days. 4. Follow up with Cardiology as recommended for further evaluation including EP studies. Medications are: 1. Crestor 10 mg p.o. daily. 2. Losartan 50 mg daily. 3. Mobic 15 mg p.o. daily. 4. Ventolin 1-2 puffs q.6 p.r.n. 5. Ceftin 500 mg p.o. b.i.d. for 3 days. 6. Lopressor 25 mg p.o. b.i.d. 7. Magnesium 64 mg daily. Once again, the patient will be discharged in stable condition with guarded prognosis. MMODL / IJN: [id number] /
== END 2020-09-30 12:40 | disposition home or self-care (01) ==
LOC: EC 15:47 → 6NMEDSUR 18:48
PROVIDERS: ADMIT Hospitalist; ATTEND Hospitalist
DX: R55 Syncope and collapse (principal); I49.9 Cardiac arrhythmia, unspecified; I47.2 Ventricular tachycardia; D64.9 Anemia, unspecified; D75.1 Secondary polycythemia; E87.1 Hypo-osmolality and hyponatremia; E78.5 Hyperlipidemia, unspecified; I10 Essential (primary) hypertension; R00.2 Palpitations; Z79.1 Long term (current) use of non-steroidal anti-inflammatories (NSAID); Z79.899 Other long term (current) drug therapy; Z90.49 Acquired absence of other specified parts of digestive tract; Z90.710 Acquired absence of both cervix and uterus; F17.200 Nicotine dependence, unspecified, uncomplicated; D72.829 Elevated white blood cell count, unspecified; J44.9 Chronic obstructive pulmonary disease, unspecified; Z82.49 Family history of ischemic heart disease and other diseases of the circulatory system; Z90.5 Acquired absence of kidney; I45.81 Long QT syndrome; N39.0 Urinary tract infection, site not specified; E83.42 Hypomagnesemia; Z20.822 Contact with and (suspected) exposure to COVID-19
CPT/HCPCS: 96366 ×2; 93005 ×2; 96361; 96365; 99291; 36415; 94640 ×2; 94760; 93306; 93458; 80053; 80048; 83735 ×2; 84484; 85025 ×2; 85610; 85730; 81001; 80306; 87635; 71045; G0378 ×3; C1769 ×2; C1760; C1894; J2250; J2001; J0696; J3010; J3475; Q9967